=== PATIENT | male | born 1935 | race Caucasian/White ===

== ENCOUNTER 2016-11-23 06:13 | Inpatient (IN) | payer MEDICARE, BC ==
--- NOTE | ~2016-11-23 | CN ---
Consultation Report [facility] [address] [place]. [address] NAME: ALISSA SMYTH : 33 STATUS : ADM IN [facility]#: [id number] AGE: 81 ADM/REG DATE : 11/23/16 MR#: [id number] REPORT SERV DATE: 11/23/16 DICTATED BY: NICOLE BUSH DATE: 11/23/16 REPORT STATUS : Draft TRANSCRIBED BY: MODL DATE: 11/23/16 CONSULTATION DATE OF CONSULTATION: 11/23/2016 REASON FOR EVALUATION: Coffee-ground emesis. HISTORY OF PRESENT ILLNESS: Mr. Smyth is a delightful, 81-year-old man on Pradaxa for management of cardiac arrhythmia. He was in his usual state of health, watching baseball and eating junk food yesterday after mowing the grass. He noted regurgitation with heartburn later in the evening, was uncomfortable when trying to go to bed. He tried to clear his throat from coughing, and after several episodes, regurgitated blood. This happened on four separate occasions, with some bright red blood admixed with coffee-grounds. He has had no abdominal pain. He has had no melena or hematochezia. He has no history of GI bleeding. He does not use aspirin or anti-inflammatory medications. He has no history of liver disease and does not drink alcohol. He takes no antacid therapy at home. PAST MEDICAL HISTORY: 1. History of sick sinus syndrome status post pacemaker. 2. Atrial fibrillation. 3. Status post hernia repair. 4. History of diverticulosis. 5. History of hiatal hernia by barium upper GI 10 years ago. MEDICATIONS: On admission include vitamin B12 sublingual; Pradaxa 150 mg b.i.d., last dose at 2000 hours last night (11/22/2016); flecainide 100 mg b.i.d.; glucosamine 1 p.o. daily; Lopressor 50 mg b.i.d.; fish oil 1200 mg b.i.d.; Systane eye drops; Flomax 0.4 mg at bedtime. ALLERGIES: AMIODARONE CAUSES AN ADVERSE REACTION. SOCIAL HISTORY: He is a nonsmoker and nondrinker, who is retired. FAMILY HISTORY: Noncontributory. PHYSICAL EXAMINATION: GENERAL: Reveals pleasant, somewhat hard of hearing man, resting comfortably. He appears younger than his stated age. VITAL SIGNS: Blood pressure 106/51, heart rate 74, and temperature 97.9. SKIN: Warm and dry with no telangiectasias. HEENT: No icterus. Oropharynx, moist mucous membranes with no blood. NECK: No adenopathy. CHEST: Clear to auscultation with no wheezes or rales. CARDIAC: Regular rate and rhythm without murmur. Consultation Report [address] [place]. [address] NAME: ALISSA SMYTH : 34 STATUS : ADM IN PAT#: [id number] AGE: 81 ADM/REG DATE : 11/23/16 MR#: [id number] REPORT SERV DATE: 11/23/16 DICTATED BY: NICOLE BUSH DATE: 11/23/16 REPORT STATUS : Draft TRANSCRIBED BY: MODL DATE: 11/23/16 ABDOMEN: Normal bowel sounds. Soft and nontender throughout including the epigastrium. No hepatosplenomegaly or ascites. EXTREMITIES: Warm without clubbing or edema. LABORATORY DATA: Sodium 143, potassium 4.2, CO2 23, BUN 15, creatinine 1.41, AST 13, ALT 19, alkaline phosphatase 105, total bilirubin 1.3. White blood cell count 9.9, hemoglobin 14, platelets 203,000. Pro time 16.4, INR 1.3, PTT 37. IMPRESSION: Gastroesophageal reflux, with upper GI bleeding in patient on novel oral anticoagulants. Differential diagnosis includes erosive esophagitis, Cathy-Huynh tear, peptic ulcer still in differential. RECOMMENDATION: 1. IV PPI. 2. Hold Pradaxa. 3. Upper endoscopy on 11/24/2016, by Dr. Wilder. Thank you for asking us to participate in his management. CS/MODL Nicole Bush M.D. / [id number] CC: Franco Stuart, DO Ke Camacho, DO Gian Eastman M.D.
--- NOTE | ~2016-11-23 | HP ---
History And Physical [id number] [place]. [address] NAME: ALISSA HAIRSTON : 33 STATUS : ADM IN [facility]#: [id number] AGE: 81 ADM/REG DATE : 11/23/16 MR#: [id number] REPORT SERV DATE: 11/23/16 DICTATED BY: HELEN GAONA DATE: 11/23/16 REPORT STATUS : Draft TRANSCRIBED BY: MODL DATE: 11/23/16 DATE OF ADMISSION: 11/23/2016 REASON FOR ADMISSION: Coffee-grounds emesis, four episodes, large volume per patient. HISTORY OF PRESENT ILLNESS: This is an 81-year-old male with known history of atrial fibrillation, even required cardioversion in 05/2016, chronic systolic heart failure, LVEF 45%-50%. He has had a PFT in the past that did not show any obstruction or restriction. The patient is on Pradaxa for his atrial fibrillation and on flecainide for rhythm control. Last Pradaxa taken was last night. The patient describes having mowing the grass, was diaphoretic, started coughing. Then, 2:30 in the morning, coughed and has significant GERD to the point where he was vomiting. Had significant large volume coffee-grounds emesis per patient, however, not objectively verified, came here with cough, shortness of breath, positive chills, no fevers, positive nausea, positive vomiting, no diarrhea, no chest pain, no chest pressure. The chest x-ray shows right middle lobe alveolar infiltration, the pacer is intact, was placed on Protonix 80 IV, then a drip given 2 g of Rocephin. When I walked in, the patient's pressure was about 95, the recycle was 118. There were no [facility] beds available per intake as a result. PAST MEDICAL HISTORY: See above. PAST SURGICAL HISTORY: See above. ALLERGIES: SUPPOSEDLY AMIODARONE. HOME MEDICATIONS: See MAR. We will continue what is relevant. SOCIAL HISTORY: Does not drink, do drugs, or smoke, nor has ever. REVIEW OF SYSTEMS: Done, see HPI. Otherwise, negative. Ten-point done. Does not have any liver disease per patient. FAMILY HISTORY: Hypertension in at least one parent. OBJECTIVE: VITAL SIGNS: Currently, is 113 systolic, it was when he came in 113/56; temperature 97.9; pulse 85; respirations 24, now 18; 93% on room air. GENERAL: Guarded. HEENT: PERRLA. No scleral icterus. CARDIOVASCULAR: Regular rate and rhythm. There are no murmur. RESPIRATORY: Decreased breath sounds on the right base compared to the left. Bibasilar coarse breath sounds. ABDOMEN: There is some tenderness to palpation, more in the epigastrium. No peritoneal History And Physical [address] [address] NAME: ALISSA HAIRSTON : 34 STATUS : ADM IN PAT#: [id number] AGE: 81 ADM/REG DATE : 11/23/16 MR#: [id number] REPORT SERV DATE: 11/23/16 DICTATED BY: HELEN GAONA DATE: 11/23/16 REPORT STATUS : Draft TRANSCRIBED BY: BRUNO DATE: 11/23/16 signs. No rebound tenderness. EXTREMITIES: No edema. No ecchymosis. NEURO: GCS 15. A and O x4 out of 4. PSYCH: Normal affect and mood. LABORATORY DATA: White count is 9.9, hemoglobin 14, platelets 203,000. Potassium 4.2, bicarb 22, creatinine 1.41, BUN 15, T bili 1.3. INR 1.3. Sugar 115. Chest x-ray, see above. EKG: He has AV paced, as a result, cannot evaluate ST-T segments reliably. There is no chest pain, no chest pressure. ASSESSMENT: 1. Coffee-grounds emesis x4, large. 2. The patient does not endorse any history of non-steroidal anti-inflammatory drug abuse. 3. Last use of Pradaxa was last night. 4. He is hemodynamically stable at this point, but was transiently relatively hypotensive. 5. History of atrial fibrillation likely with a pacer. 6. History of chronic systolic heart failure, LVEF 45%-50%. 7. Acidosis. 8. Acute kidney injury versus chronic kidney disease. PLAN: We will go ahead and admit this patient. I would like to go ahead and panculture the patient and start on IV Zosyn in case the patient needs blood to free up an IV. I spoke with pharmacy. The patient at this point does not meet criteria for antibody to Pradaxa infusion as he is hemodynamically stable. Has not had any recurrent bleeding since around 3:30 a.m. However, we will go ahead and give him 2 units of FFPs to combat the direct thrombin inhibitor. Albumin 1.5 L, normal saline bolus, and D5LR at 100. Continue Protonix drip at 8 mg an hour. I will ensure he gets a peripheral IV on his right side as well in case he needs whole blood infusion for which I will do H and H q.6 h. x3. If he drops less than 10, I am going to transfuse him 2 units. Given his cardiac history as well as rapid bleed, give him sodium bicarb. See rest of my orders. All questions were answered. It took well over 60 minutes to do. Reference [employer]. WST/MODL Helen Gaona DO / [id number] CC: DO SELAM Person OWEN FRANCIS
--- NOTE | ~2016-11-23 | EGD ---
EGD REPORT [facility] [address] [place] [address] NAME: ALISSA SMYTH : 34 STATUS : ADM IN PAT#: [id number] AGE: 81 ADM/REG DATE : 11/23/16 MR#: [id number] REPORT SERV DATE: 11/24/16 DICTATED BY: HOMER DARDEN DATE: 11/24/16 REPORT STATUS : Draft [facility]ANSCRIBED BY: [facility] DATE: 11/24/16 [facility] Patient Name: Alissa Smyth Date of : 1935 Attending MD: HOMER DARDEN MD Procedure Date No Time: 11/24/2016 Procedure: Upper GI endoscopy Indications: Coffee-ground emesis, Hematemesis Medicines: Monitored Anesthesia Care Complications: No immediate complications. Estimated blood loss: Minimal. Procedure: After obtaining informed consent, the endoscope was passed under direct vision. Throughout the procedure, the patient's blood pressure, pulse, and oxygen saturations were monitored continuously. The GIF [id number] was introduced through the mouth, and advanced to the second part of duodenum. The upper GI endoscopy was accomplished without difficulty. The patient tolerated the procedure well. Findings: No gross lesions were noted in the entire esophagus. Normal Z-line and no esophagitis A medium-sized hiatus hernia was present. The examined duodenum was normal. The exam was otherwise without abnormality. Impression: - Hiatus hernia. - The examination was otherwise normal. - Question possibility of a small Cathy Huynh tear that was not visualized. - No clear source of hematemesis was seen. Recommendation: - Return patient to [facility] for ongoing care. - Full liquid diet and then advance diet as tolerated by symptoms. - Use Protonix (pantoprazole) 40 mg PO BID for 4 weeks. Procedure Code(s): --- Professional --- 90740, Esophagogastroduodenoscopy, flexible, transoral; diagnostic, including collection of specimen(s) by brushing or washing, when performed (separate procedure) Diagnosis Code(s): --- Professional --- K44.9, Diaphragmatic hernia without obstruction or EGD REPORT [facility] [address] [address] NAME: ALISSA SMYTH : 34 STATUS : ADM IN [facility]#: [id number] AGE: 81 ADM/REG DATE : 11/23/16 MR#: [id number] REPORT SERV DATE: 11/24/16 DICTATED BY: HOMER DARDEN DATE: 11/24/16 REPORT STATUS : Draft TRANSCRIBED BY: [employer] DATE: 11/24/16 gangrene K92.0, Hematemesis CPT copyright 2013 [employer]. All rights reserved. The codes documented in this report are preliminary and upon conductor yard review may be revised to meet current compliance requirements. Homer Darden MD HOMER DARDEN MD 11/24/2016 9:44 AM This report has been signed electronically. Number of Addenda: 0 Note Initiated On: 11/24/2016 9:23 AM Scope Withdrawal Time 0 hours 0 minutes 0 seconds [address] [place] [id number]
--- NOTE | ~2016-11-23 | DS ---
Discharge Summary [address] [place]. [address] NAME: ALISSA HAIRSTON : 34 STATUS : DIS IN PAT#: [id number] AGE: 81 ADM/REG DATE : 11/23/16 MR#: [id number] REPORT SERV DATE: 11/27/16 DICTATED BY: DEDE ESPARZA DATE: 11/26/16 REPORT STATUS : Draft TRANSCRIBED BY: MODL DATE: 11/26/16 ADMISSION DATE: 11/23/2016 DISCHARGE DATE: 11/26/2016 CONDITION ON DISCHARGE: Stable. DISPOSITION: Discharged to home. ADVICE ON DISCHARGE: To follow up with PCP within the next one to two weeks and also with GI specialist, Dr. Eastman within the next four weeks as advised by GI. MEDICATIONS UPON DISCHARGE: 1. That are new include Levaquin 750 mg p.o. once a day for the next five days to finish the course of antibiotics for his acute bronchitis/multilobar early pneumonia. 2. The patient's metoprolol tartrate will be reduced to 25 mg p.o. b.i.d. instead of 50 mg p.o. b.i.d. The patient will resume Pradaxa. DIAGNOSES ON DISCHARGE: Includes hemoptysis probably secondary to acute bronchitis/early multilobar pneumonia - resolved. His H and H are stable and there have been no more episodes of hemoptysis. Stool Hemoccult has been negative too, so this does not appear like GI bleed. Hence, the patient is being discharged home on antibiotics and also advised to resume Pradaxa for his chronic atrial fibrillation status. 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 BRIEF HOSPITAL COURSE: The patient is a very pleasant 81-year-old male patient, who was admitted with hemoptysis, questionable hematemesis as he complained of coffee-ground colored, not actually vomitus, but stuff that came out of his mouth when he started coughing and started gagging a little bit. We were not sure at this time whether this was hematemesis or hemoptysis, hence we admitted the patient to monitor his H and H and to make sure that he was not having a GI bleed. His Pradaxa was held and his metoprolol was held also. The patient was also started on antibiotics as his chest x-ray/CT scan showed probably early multilobar pneumonia because of hazy infiltrates that were there in the upper lobes on both sides and both lower lobes. At this time, we were unsure whether this was an acute bronchitis or early multilobar pneumonia and hence he was started on antibiotics. After antibiotics were started and Pradaxa was held, the patient felt much better and has had no more episodes of hemoptysis. Stool Hemoccult has come back negative. So, in the very first place, we are not even sure if this was hematemesis. GI evaluated him and did not advise any further workup, as they already did an EGD. Upper endoscopy or EGD showed essentially normal esophagus, no bleeding source, normal stomach but a hiatal hernia. Hence, the patient will also be on Protonix 40 mg twice a day for the next one month. The patient is hence being discharged home in stable condition with advice to resume Pradaxa, reduce metoprolol to 25 mg twice a day and continue Levaquin 750 mg once a day for five more Discharge Summary [address] [address] NAME: ALISSA HAIRSTON : 34 STATUS : DIS IN PAT#: [id number] AGE: 81 ADM/REG DATE : 11/23/16 MR#: [id number] REPORT SERV DATE: 11/27/16 DICTATED BY: DEDE ESPARZA DATE: 11/26/16 REPORT STATUS : Draft TRANSCRIBED BY: BRUNO DATE: 11/26/16 days only to clear up this bronchitis. The patient does not even require oxygen on the day of discharge and feels great, and hence he is being discharged home and I have spent about 35 minutes in coordinating discharge care of this patient including [id number] encounter and summarizing this discharge. DICTATED BY: Derrick Gar/BRUNO Dede Esparza M.D. / [id number] CC: Derrick Gar DO
[~2016-11-23 06:13] MED LIST: ASAB PO; ASABAYER PO; BETAP120 PO; BETAPACE80 PO; CARDU2 PO; CARDU4 PO; COSAMIN DS1 TAB PO; CYANO1000T PO; DIGITEK0.125 MG PO; FISH OIL1200 MG PO; FISH-EPA1000 MG PO; FLECAINIDE100 MG PO; FLECAINIDE50 MG PO; FLOMAX4 PO; GLUCCHONDR PO; LOP25 PO; LOP50 PO; PRADAXA150 MG PO; PRILO PO; PRILOSEC10 MG PO; PRILOSEC40 MG PO; PROMEGA PO; PROPECIA1 MG PO; SYSTANE OPH; TIKOSYN 500 M500 MCG PO; TIKOSYN500 MCG OR; ULTRAM50 PO
[2016-11-23 06:48] LABS: BASOPHILS 0.1 %; BASOPHILS ABSOLUTE 0.01 10/3/uL (0.0-0.16); EOSINOPHILS 0.4 %; EOSINOPHILS ABSOLUTE 0.04 10/3/uL (0.0-0.53); ER CBC TAT 0 Hrs 02 Mins; HEMATOCRIT 40.7 % (40.0-51.0); IMMATURE GRANULOCYTES 0.2 %; IMMATURE GRANULOCYTES ABSOLUTE 0.02 10/3/uL (0.0-0.11); LYMPHOCYTES ABSOLUTE 1.39 10/3/uL (0.67-4.30); MEAN CORPUS HGB CONC 34.4 g/dL (32.0-36.0); MEAN CORPUSCULAR HEMOGLOB 30.3 pg (26.0-34.0); MEAN CORPUSCULAR VOLUME 88.1 fL (80-100); MEAN PLATELET VOLUME 10.5 fL (9.2-13.0); MONOCYTES 6.1 %; MONOCYTES ABSOLUTE 0.61 10/3/uL (0.21-1.20); NEUTROPHILS 79.2 %; NEUTROPHILS ABSOLUTE 7.87 10/3/uL (2.02-8.40); PLATELET COUNT 203 10/3/uL (150-400); RBC DISTRIBUTION WIDTH 13.1 % (12.0-16.0); RED CELL COUNT 4.62 10/6/uL (4.7-6.1); WHITE BLOOD CELLS 9.9 10/3/uL (4.5-10.5)
[2016-11-23 06:52] LABS: MANUAL DIFF NO %
[2016-11-23 07:05] LABS: A/G RATIO 1.2 (0.7-1.9); ALBUMIN 3.6 G/DL (3.5-5.0); BUN (BLOOD UREA NITROGEN) 15 MG/DL (6-23); CALCIUM, SERUM 8.4 MG/DL (8.5-10.4); CHLORIDE, SERUM 112 MMOL/L (96-112); CO2 (CARBON DIOXIDE) 22 MMOL/L (24-34); CREATININE 1.41 MG/DL (0.70-1.30); GFR AFRICAN AMERICAN 53 ML/MIN (>=60); GFR NON AFRICAN AMERICAN 46 ML/MIN (>=60); GLOBULIN 3.1 G/DL (2.5-4.1); GLUCOSE, SERUM 115 MG/DL (60-99); POTASSIUM, SERUM 4.2 MMOL/L (3.5-5.3); SGOT(AST) 13 U/L (5-40); SGPT(ALT) 19 U/L (5-65); SODIUM, SERUM 143 MMOL/L (135-148); TOTAL BILIRUBIN 1.3 MG/DL (0-1.2); TOTAL PROTEIN 6.7 G/DL (6.0-8.5)
[2016-11-23 07:07] LABS: INTERNATIONAL NORMAL RATI 1.3 UNITS (-); PARTIAL THROMBO TIME 37.7 SEC (22.5-37.2); PROTIME (NOT ORD) 16.4 SEC (12.0-14.5)
[2016-11-23 07:11] LABS: ALKALINE PHOSPHATASE 105 U/L (45-117)
[2016-11-23] MEDS ORDERED: PRADAXA150 MG PO (09:28)
[2016-11-23] MEDS ORDERED: LOP50 PO (09:29)
[2016-11-23] MEDS ORDERED: FLECAINIDE100 MG PO (09:29)
[2016-11-23] MEDS ORDERED: FLOMAX4 PO (09:29)
[2016-11-23] MEDS ORDERED: FISH OIL1200 MG PO (09:30)
[2016-11-23] MEDS ORDERED: VITAMIN B-121000 MC1 PO (09:30)
[2016-11-23] MEDS ORDERED: GLUCCHONDR PO (09:31)
[2016-11-23] MEDS ORDERED: SYSTANE OPH (09:32)
[2016-11-23 12:10] LABS: PROCALCITONIN 0.09 ng/mL (<0.5)
[2016-11-23 12:33] LABS: PHOSPHORUS, SERUM 1.6 MG/DL (2.5-4.5); TROPONIN I <0.02 NG/ML (<0.05)
[2016-11-23 13:24] LABS: WBC (NOT ORDERED) (RFLEX) 0 (0-5)
[2016-11-23 14:08] LABS: ASCORBIC ACID (UR NOT ORDER) NEG (NEG); BILIRUBIN, URINE NEGATIVE (NEG); KETONE, URINE NEGATIVE (NEG); LEUKOCYTE ESTERASE(NOT OR NEG (NEG)
[2016-11-23 18:10] LABS: HEMATOCRIT 36.2 % (40.0-51.0)
[2016-11-24 05:24] LABS: BASOPHILS 0.1 %; BASOPHILS ABSOLUTE 0.01 10/3/uL (0.0-0.16); EOSINOPHILS 0.4 %; EOSINOPHILS ABSOLUTE 0.05 10/3/uL (0.0-0.53); HEMOGLOBIN 11.2 g/dL (13.6-17.8); IMMATURE GRANULOCYTES 0.2 %; IMMATURE GRANULOCYTES ABSOLUTE 0.03 10/3/uL (0.0-0.11); LYMPHOCYTES 16.9 %; LYMPHOCYTES ABSOLUTE 2.29 10/3/uL (0.67-4.30); MEAN CORPUS HGB CONC 33.9 g/dL (32.0-36.0); MEAN CORPUSCULAR HEMOGLOB 30.4 pg (26.0-34.0); MEAN CORPUSCULAR VOLUME 89.7 fL (80-100); MEAN PLATELET VOLUME 10.5 fL (9.2-13.0); MONOCYTES 7.5 %; MONOCYTES ABSOLUTE 1.02 10/3/uL (0.21-1.20); NEUTROPHILS 74.9 %; NEUTROPHILS ABSOLUTE 10.13 10/3/uL (2.02-8.40); PLATELET COUNT 157 10/3/uL (150-400); RBC DISTRIBUTION WIDTH 13.2 % (12.0-16.0); WHITE BLOOD CELLS 13.5 10/3/uL (4.5-10.5)
[2016-11-24 05:43] LABS: CALCIUM, SERUM 8.3 MG/DL (8.5-10.4); CHLORIDE, SERUM 109 MMOL/L (96-112); CO2 (CARBON DIOXIDE) 25 MMOL/L (24-34); GFR AFRICAN AMERICAN 54 ML/MIN (>=60); GFR NON AFRICAN AMERICAN 46 ML/MIN (>=60); GLUCOSE, SERUM 100 MG/DL (60-99); PHOSPHORUS, SERUM 1.8 MG/DL (2.5-4.5); POTASSIUM, SERUM 3.9 MMOL/L (3.5-5.3); SODIUM, SERUM 140 MMOL/L (135-148)
[2016-11-24 05:44] LABS: MANUAL DIFF NO %; RED CELL COUNT 3.68 10/6/uL (4.7-6.1)
[2016-11-24 05:46] LABS: BUN (BLOOD UREA NITROGEN) 19 MG/DL (6-23)
[2016-11-24 17:13] LABS: HEMATOCRIT 35.6 % (40.0-51.0); HEMOGLOBIN 11.9 g/dL (13.6-17.8)
[2016-11-25 06:35] LABS: BASOPHILS 0.1 %; BASOPHILS ABSOLUTE 0.01 10/3/uL (0.0-0.16); EOSINOPHILS 0.7 %; EOSINOPHILS ABSOLUTE 0.06 10/3/uL (0.0-0.53); HEMOGLOBIN 10.8 g/dL (13.6-17.8); IMMATURE GRANULOCYTES 0.2 %; IMMATURE GRANULOCYTES ABSOLUTE 0.02 10/3/uL (0.0-0.11); LYMPHOCYTES 21.7 %; LYMPHOCYTES ABSOLUTE 1.88 10/3/uL (0.67-4.30); MEAN CORPUS HGB CONC 33.9 g/dL (32.0-36.0); MEAN CORPUSCULAR HEMOGLOB 30.3 pg (26.0-34.0); MEAN CORPUSCULAR VOLUME 89.4 fL (80-100); MEAN PLATELET VOLUME 10.8 fL (9.2-13.0); MONOCYTES ABSOLUTE 0.95 10/3/uL (0.21-1.20); NEUTROPHILS 66.3 %; NEUTROPHILS ABSOLUTE 5.75 10/3/uL (2.02-8.40); PLATELET COUNT 147 10/3/uL (150-400); RBC DISTRIBUTION WIDTH 13.3 % (12.0-16.0); RED CELL COUNT 3.57 10/6/uL (4.7-6.1); WHITE BLOOD CELLS 8.7 10/3/uL (4.5-10.5)
[2016-11-25 06:36] LABS: HEMATOCRIT 31.9 % (40.0-51.0); MANUAL DIFF NO %
[2016-11-25 06:46] LABS: CALCIUM, SERUM 8.2 MG/DL (8.5-10.4); CHLORIDE, SERUM 107 MMOL/L (96-112); CO2 (CARBON DIOXIDE) 27 MMOL/L (24-34); CREATININE 1.23 MG/DL (0.70-1.30); GFR AFRICAN AMERICAN 63 ML/MIN (>=60); GFR NON AFRICAN AMERICAN 54 ML/MIN (>=60); GLUCOSE, SERUM 92 MG/DL (60-99); PHOSPHORUS, SERUM 2.2 MG/DL (2.5-4.5); POTASSIUM, SERUM 3.8 MMOL/L (3.5-5.3); SODIUM, SERUM 141 MMOL/L (135-148)
[2016-11-25 06:47] LABS: BUN (BLOOD UREA NITROGEN) 14 MG/DL (6-23)
[2016-11-25 17:27] LABS: HEMOGLOBIN 11.2 g/dL (13.6-17.8)
[2016-11-26 06:25] LABS: BASOPHILS 0.2 %; BASOPHILS ABSOLUTE 0.01 10/3/uL (0.0-0.16); EOSINOPHILS 0.9 %; EOSINOPHILS ABSOLUTE 0.06 10/3/uL (0.0-0.53); HEMATOCRIT 32.4 % (40.0-51.0); HEMOGLOBIN 11.1 g/dL (13.6-17.8); IMMATURE GRANULOCYTES 0.3 %; IMMATURE GRANULOCYTES ABSOLUTE 0.02 10/3/uL (0.0-0.11); LYMPHOCYTES 27.2 %; LYMPHOCYTES ABSOLUTE 1.76 10/3/uL (0.67-4.30); MANUAL DIFF NO %; MEAN CORPUS HGB CONC 34.3 g/dL (32.0-36.0); MEAN CORPUSCULAR HEMOGLOB 30.7 pg (26.0-34.0); MEAN CORPUSCULAR VOLUME 89.5 fL (80-100); MEAN PLATELET VOLUME 10.8 fL (9.2-13.0); MONOCYTES 11.1 %; MONOCYTES ABSOLUTE 0.72 10/3/uL (0.21-1.20); NEUTROPHILS 60.3 %; PLATELET COUNT 164 10/3/uL (150-400); RBC DISTRIBUTION WIDTH 13.1 % (12.0-16.0); RED CELL COUNT 3.62 10/6/uL (4.7-6.1); WHITE BLOOD CELLS 6.5 10/3/uL (4.5-10.5)
[2016-11-26 06:41] LABS: BUN (BLOOD UREA NITROGEN) 12 MG/DL (6-23); CALCIUM, SERUM 8.3 MG/DL (8.5-10.4); CHLORIDE, SERUM 106 MMOL/L (96-112); CO2 (CARBON DIOXIDE) 23 MMOL/L (24-34); CREATININE 1.13 MG/DL (0.70-1.30); GFR AFRICAN AMERICAN 70 ML/MIN (>=60); GFR NON AFRICAN AMERICAN 60 ML/MIN (>=60); GLUCOSE, SERUM 103 MG/DL (60-99); PHOSPHORUS, SERUM 2.6 MG/DL (2.5-4.5); POTASSIUM, SERUM 3.9 MMOL/L (3.5-5.3); SODIUM, SERUM 139 MMOL/L (135-148)
[2016-11-26] MEDS ORDERED: LOP25 PO (13:09)
[2016-11-26] MEDS ORDERED: LEVAQUIN750 MG PO (13:09)
[2016-11-26] MEDS ORDERED: PROTONIX PO (13:10)
== END 2016-11-26 15:54 | disposition home or self-care (01) | DRG 194 ==
LOC: ER 06:13 → 5SO 10:02
PROVIDERS: Emergency Medicine; Internal Medicine; Internal Medicine Gastroenterology; Specialist
PROC: 30233K1 Transfusion of Nonautologous Frozen Plasma into Peripheral Vein, Percutaneous Approach (ICD-10-PCS; 2016-11-23)
PROC: 0DJ08ZZ Inspection of Upper Intestinal Tract, Via Natural or Artificial Opening Endoscopic (ICD-10-PCS; principal; 2016-11-24 09:31)
DX: J18.9 Pneumonia, unspecified organism (principal); K92.0 Hematemesis; E87.2 Acidosis; D62 Acute posthemorrhagic anemia; I50.22 Chronic systolic (congestive) heart failure; I48.2 Chronic atrial fibrillation; J20.9 Acute bronchitis, unspecified; K21.0 Gastro-esophageal reflux disease with esophagitis; Z95.0 Presence of cardiac pacemaker; Z79.899 Other long term (current) drug therapy; K44.9 Diaphragmatic hernia without obstruction or gangrene; Z88.8 Allergy status to other drugs, medicaments and biological substances; N18.2 Chronic kidney disease, stage 2 (mild); Z82.49 Family history of ischemic heart disease and other diseases of the circulatory system
CPT/HCPCS: 36415; 36430; 71010; 71250; 74176; 80048; 80053; 81001; 82272; 82962; 83605; 83735; 84100; 84145; 84443; 84484; 85014; 85018; 85025; 85610; 85730; 86850; 86900; 86901; 86920; 87040; 87449; 87493; 87493-59; 93005; 96374; 96375; 97161-GP; 99291; A9270-GY; C9113; G8978-CH-GP; G8979-CH-GP; G8980-CH-GP; J2405; J2543; P9059

== ENCOUNTER 2016-11-30 10:08 | Emergency (ER) | payer MEDICARE, BC ==
--- NOTE | ~2016-11-30 | OP ---
Record Of Operation [facility] [address] [place]. [address] NAME: ALISSA HAIRSTON : 33 STATUS : [facility]#: [id number] AGE: 81 ADM/REG DATE : 11/30/16 MR#: [id number] REPORT SERV DATE: 11/30/16 DICTATED BY: ARVIND EASTMAN DATE: 11/30/16 REPORT STATUS : Draft TRANSCRIBED BY: BRUNO DATE: 11/30/16 DATE OF PROCEDURE: 11/30/2016 PROCEDURE PERFORMED: Esophagoscopy. INDICATION FOR THE PROCEDURE: The patient comes with something stuck in his throat, he points to the suprasternal area. PREOPERATIVE DIAGNOSIS: The patient comes with something stuck in his throat, he points to the suprasternal area. POSTOPERATIVE DIAGNOSIS: Inflammation with ulceration of pyriform sinus, probably from a pill being stuck there, however there is no pill at this point. Esophagus and GE junction normal. CONSENT: Procedure discussed with risks, benefits, and alternatives, he understands and is agreeable. PREMEDICATIONS: Per anesthesia. PROCEDURE IN DETAIL: The procedure was performed in the GI lab. The scope was lubricated, placed into the patient's mouth, passed up to the posterior pharynx and esophagus, intubated under direct vision. In the left pyriform sinus, there were erosion, inflammation, and ulceration. There was no pill present at this point, however this area looked whitish probably from something being stuck there which is now passed. There was nothing to remove from that area either. Scope was then passed down by the side into the esophagus. The entire esophagus and GE junction were normal without any food bolus. The supraglottic area on the left side appeared edematous. IMPRESSION: Inflammation of the left pyriform sinus with supraglottic inflammation and edema, possibly from a pill being stuck there, which is not present at this point. RECOMMENDATIONS: I advised the patient to stay on warm liquids today and start a soft diet tomorrow. DALILA/BRUNO Gian Eastman M.D. / [id number] CC: Ke Camacho, DO
[~2016-11-30 10:08] MED LIST changes: +LEVAQUIN750 MG PO; +PROTONIX PO; +VITAMIN B-121000 MC1 PO
[2016-11-30 11:15] LABS: BASOPHILS 0.3 %; BASOPHILS ABSOLUTE 0.02 10/3/uL (0.0-0.16); EOSINOPHILS 1.5 %; EOSINOPHILS ABSOLUTE 0.12 10/3/uL (0.0-0.53); HEMOGLOBIN 12.3 g/dL (13.6-17.8); IMMATURE GRANULOCYTES 0.5 %; IMMATURE GRANULOCYTES ABSOLUTE 0.04 10/3/uL (0.0-0.11); LYMPHOCYTES ABSOLUTE 1.52 10/3/uL (0.67-4.30); MEAN CORPUS HGB CONC 33.8 g/dL (32.0-36.0); MEAN CORPUSCULAR HEMOGLOB 29.9 pg (26.0-34.0); MEAN CORPUSCULAR VOLUME 88.6 fL (80-100); MONOCYTES 8.4 %; MONOCYTES ABSOLUTE 0.67 10/3/uL (0.21-1.20); NEUTROPHILS 70.3 %; NEUTROPHILS ABSOLUTE 5.63 10/3/uL (2.02-8.40); PLATELET COUNT 211 10/3/uL (150-400); RBC DISTRIBUTION WIDTH 13.2 % (12.0-16.0); RED CELL COUNT 4.11 10/6/uL (4.7-6.1)
[2016-11-30 11:16] LABS: HEMATOCRIT 36.4 % (40.0-51.0); MANUAL DIFF NO %
[2016-11-30 11:23] LABS: INTERNATIONAL NORMAL RATI 1.3 UNITS (-); PROTIME (NOT ORD) 16.1 SEC (12.0-14.5)
[2016-11-30 11:24] LABS: PARTIAL THROMBO TIME 41.1 SEC (22.5-37.2)
[2016-11-30 11:27] LABS: CALCIUM, SERUM 8.2 MG/DL (8.5-10.4); CHLORIDE, SERUM 105 MMOL/L (96-112); CO2 (CARBON DIOXIDE) 24 MMOL/L (24-34); CREATININE 1.16 MG/DL (0.70-1.30); GFR AFRICAN AMERICAN 68 ML/MIN (>=60); GFR NON AFRICAN AMERICAN 58 ML/MIN (>=60); GLUCOSE, SERUM 121 MG/DL (60-99); POTASSIUM, SERUM 3.7 MMOL/L (3.5-5.3); SODIUM, SERUM 136 MMOL/L (135-148)
[2016-11-30 11:30] LABS: BUN (BLOOD UREA NITROGEN) 8 MG/DL (6-23)
[2016-11-30] MEDS ORDERED: LEVAQUIN750 MG PO (12:54)
[2016-11-30] MEDS ORDERED: PRADAXA150 MG PO (12:54)
[2016-11-30] MEDS ORDERED: PROTONIX PO (12:54)
[2016-11-30] MEDS ORDERED: LOP25 PO (12:55)
[2016-11-30] MEDS ORDERED: FLECAINIDE100 MG PO (12:55)
[2016-11-30] MEDS ORDERED: ZANTAC 150 PO (12:55)
[2016-11-30] MEDS ORDERED: GLUCCHONDR PO (12:56)
[2016-11-30] MEDS ORDERED: FISH OIL1200 MG PO (12:56)
[2016-11-30] MEDS ORDERED: CYANO1000T PO (12:56)
[2016-11-30] MEDS ORDERED: FLOMAX4 PO (12:56)
[2016-11-30] MEDS ORDERED: SYSTANE OPH (12:57)
[2016-11-30] MEDS ORDERED: MIRALAX POWDER1 PKT PO (12:57)
[2016-11-30] MEDS ORDERED: METPAKSF PO (12:57)
== END 2016-11-30 13:23 | disposition home or self-care (01) ==
LOC: ER 10:08
PROVIDERS: Internal Medicine Gastroenterology; Nurse Practitioner Family
PROC: 0DJ08ZZ Inspection of Upper Intestinal Tract, Via Natural or Artificial Opening Endoscopic (ICD-10-PCS; principal; 2016-11-30 13:34)
DX: T17.298A Other foreign object in pharynx causing other injury, initial encounter (principal); I50.9 Heart failure, unspecified; N18.9 Chronic kidney disease, unspecified; I48.91 Unspecified atrial fibrillation; Z95.0 Presence of cardiac pacemaker; Z87.01 Personal history of pneumonia (recurrent); Z87.891 Personal history of nicotine dependence; Z88.8 Allergy status to other drugs, medicaments and biological substances; Z79.899 Other long term (current) drug therapy
CPT/HCPCS: 80048; 85025; 85610; 85730; 93005; 96374; 99284; J1610